=== PATIENT | male | born 1995 | race Hispanic/Latino ===

== ENCOUNTER 2018-01-06 14:55 | Emergency (ER) | payer SELFPAY ==
[2018-01-06] MEDS ORDERED: Bacitracin Zinc 1 Packet ONE (15:51)
[2018-01-06] MEDS ORDERED: Adacel (T-DAP) 0.5 ML VIAL ONE (15:51)
== END 2018-01-06 16:24 | disposition home or self-care (01) ==
LOC: ERS 14:55
DX: S91.311A Laceration without foreign body, right foot, initial encounter (principal); Z87.891 Personal history of nicotine dependence; W25.XXXA Contact with sharp glass, initial encounter
CPT/HCPCS: 90471; 90715